=== PATIENT | female | born 1970 | race Caucasian/White ===

== ENCOUNTER 2019-05-06 16:36 | Inpatient (IN) ==
[2019-05-06] MEDS ORDERED: Ondansetron ODT 4 MG TAB.RAPDIS SL ONE (16:57)
[2019-05-06 18:30] LABS: White Blood Count 9.3 K/mcL (4.3-11.1)
[2019-05-06 18:31] LABS: Basophils % 0.4 %; Eosinophils % 0.1 %; Hematocrit 49.2 % (35.3-44.9); Hemoglobin 16.4 g/dL (11.5-15.4); Immature Granulocytes % 0.3 % (0-4); Lymphocytes # 1.3 K/mcL (0.6-4.6); Lymphocytes % 13.6 %; Mean Corpuscular HGB Conc 33.3 g/dL (31.6-35.5); Mean Corpuscular Hemoglobin 31.5 pg (28.0-33.3); Mean Corpuscular Volume 94.6 fL (83.0-100.0); Mean Platelet Volume 10.2 fL (9.4-12.4); Monocytes # 0.7 K/mcL (0.0-1.3); Neutrophils # 7.3 K/mcL (1.6-8.9); Platelet Count 253 K/mcL (140-400); Red Cell Distribution Width 11.9 % (11.5-14.5); Segmented Neutrophils % 78.6 %
[2019-05-06 18:38] LABS: Bilirubin,Urine Negative (Negative); Blood,Urine Negative (Negative); Clarity,Urine Clear (Clear); Color,Urine Yellow (Yellow); Glucose,Urine (UA) Normal (Normal); Ketones,Urine 40 mg/dL (Negative); Leukocyte Esterase,Urine Negative (Negative); Nitrite,Urine Negative (Negative); PH,Urine 5.5 pH Units (5.0-8.0); Protein,Urine Negative (Neg-Trace); Specific Gravity,Urine 1.022 (1.010-1.025); Urobilinogen,Urine Normal (Normal)
[2019-05-06 18:40] LABS: Acetaminophen < 10 mcg/mL (10-20); BUN/Creatinine Ratio 20 (6-26); Blood Urea Nitrogen 15 mg/dL (6-20); Calcium 9.8 mg/dL (8.6-10.3); Carbon Dioxide 22 mEq/L (23-29); Chloride 105 mEq/L (98-107); Ethanol < 10 mg/dL (Less than 10); Glucose 74 mg/dL (70-105); Osmolality,Calculated 285 (280-300); Salicylate < 2.5 mg/dL (15.0-30.0); Sodium 138 mEq/L (136-145); eGFR For African Americans > 60 (> 60); eGFR For Non-African Americans > 60 (> 60)
[2019-05-06 18:52] LABS: Amphetamine Screen,Urine Negative ng/mL (Cutoff=1000); Barbiturate Screen,Urine Negative ng/mL (Cutoff=200); Benzodiazepines Screen,Urine Negative ng/mL (Cutoff=200); Cannabinoid Screen,Urine Negative ng/mL (Cutoff = 50); Cocaine Screen,Urine Negative ng/mL (Cutoff= 300); Opiate Screen,Urine Negative ng/mL (Cutoff=300); Phencyclidine Screen,Urine Negative ng/mL (Cutoff=25)
[2019-05-06] MEDS ORDERED: Ibuprofen 600 MG TABLET PO ONE (19:32)
[2019-05-06] MEDS ORDERED: MOM Conc 10 ML UD.LIQ PO PRN (20:50)
[2019-05-06] MEDS ORDERED: Haloperidol Lactate 5 MG/ML VIAL IM PRN (20:50)
[2019-05-06] MEDS ORDERED: Mag Hydrox/Al Hydrox/Simeth 30 ML UDC PO PRN (20:50)
[2019-05-06] MEDS ORDERED: *HR* LORazepam 2 MG/ML VIAL IM PRN (20:50)
[2019-05-06] MEDS ORDERED: Acetaminophen 325 MG TABLET PO PRN (20:50)
[2019-05-06] MEDS ORDERED: *HR* LORazepam 1 MG TABLET PO PRN (20:50)
[2019-05-06] MEDS: traZODone 50 MG TABLET PO PRN (21:46)
[2019-05-06] MEDS: hydrOXYzine pamoate 25 MG CAPSULE PO PRN (21:46)
[2019-05-07] MEDS: BuPROPion XL (24 HR) 150 MG TABLET PO SCH (13:25)
[2019-05-07] MEDS: Gabapentin 400 MG CAPSULE PO SCH (20:53)
[2019-05-07] MEDS: traZODone 50 MG TABLET PO PRN (20:54)
[2019-05-07] MEDS: hydrOXYzine pamoate 25 MG CAPSULE PO PRN (20:54)
[2019-05-08] MEDS: Gabapentin 400 MG CAPSULE PO SCH (09:42)
[2019-05-08] MEDS: BuPROPion XL (24 HR) 150 MG TABLET PO SCH (09:42)
[2019-05-08 10:07] VITALS: BP 104/77
== END 2019-05-08 11:20 | disposition home or self-care (01) | DRG 885 ==
LOC: EMEROOARM 16:36 → 1ANU 20:31
PROVIDERS: ADMIT Psychiatry & Neurology Psychiatry; ATTEND Psychiatry & Neurology Psychiatry

== ENCOUNTER 2019-05-14 20:12 | Inpatient (IN) ==
[2019-05-14 21:34] LABS: Bilirubin,Urine Negative (Negative); Blood,Urine Negative (Negative); Clarity,Urine Clear (Clear); Color,Urine Yellow (Yellow); Glucose,Urine (UA) Normal (Normal); Ketones,Urine Negative (Negative); Leukocyte Esterase,Urine Negative (Negative); Nitrite,Urine Negative (Negative); PH,Urine 7.5 pH Units (5.0-8.0); Protein,Urine Negative (Neg-Trace); Specific Gravity,Urine 1.018 (1.010-1.025); Urobilinogen,Urine Normal (Normal)
[2019-05-14] MEDS ORDERED: Dexamethasone 4 MG/ML VIAL IVP ONE (22:19)
[2019-05-14] MEDS ORDERED: Ketorolac 15 MG/ML VIAL IM ONE (22:19)
[2019-05-14] MEDS ORDERED: *HR* FentaNYL (PF) 100 MCG/2 ML VIAL IVP ONE (22:19)
[2019-05-14] MEDS ORDERED: Ketorolac 15 MG/ML VIAL IVP ONE (22:30)
[2019-05-14 23:09] LABS: Basophils % 0.5 %; Eosinophils # 0.2 K/mcL (0.0-0.6); Hematocrit 38.6 % (35.3-44.9); Hemoglobin 12.7 g/dL (11.5-15.4); Immature Granulocytes % 0.3 % (0-4); Lymphocytes # 2.6 K/mcL (0.6-4.6); Mean Corpuscular HGB Conc 32.9 g/dL (31.6-35.5); Mean Corpuscular Hemoglobin 31.8 pg (28.0-33.3); Mean Corpuscular Volume 96.5 fL (83.0-100.0); Mean Platelet Volume 10.1 fL (9.4-12.4); Monocytes # 0.6 K/mcL (0.0-1.3); Monocytes % 8.1 %; Neutrophils # 4.2 K/mcL (1.6-8.9); Platelet Count 216 K/mcL (140-400); Red Cell Distribution Width 12.4 % (11.5-14.5); Segmented Neutrophils % 55.1 %; White Blood Count 7.7 K/mcL (4.3-11.1)
[2019-05-14 23:26] LABS: Alanine Aminotransferase 34 Units/L (7-52); Albumin/Globulin Ratio 1.4 (1.1-2.2); Alkaline Phosphatase 54 Units/L (34-104); Aspartate Amino Transferase 26 Units/L (13-39); BUN/Creatinine Ratio 16 (6-26); Bilirubin,Total 0.3 mg/dL (0.3-1.0); Blood Urea Nitrogen 13 mg/dL (6-20); Calcium 9.3 mg/dL (8.6-10.3); Carbon Dioxide 36 mEq/L (23-29); Chloride 104 mEq/L (98-107); Globulin 2.8 g/dL (2.4-3.5); Glucose 76 mg/dL (70-105); Osmolality,Calculated 291 (280-300); Potassium 3.5 mEq/L (3.5-5.1); Sodium 141 mEq/L (136-145); Total Protein 6.8 g/dL (6.4-8.9); eGFR For African Americans > 60 (> 60); eGFR For Non-African Americans > 60 (> 60)
[2019-05-15] MEDS ORDERED: *HR* HYDROmorphone (PF) 1 MG/ML SYRINGE IVP ONE (00:42)
[2019-05-15] MEDS ORDERED: Dexamethasone 10 MG/ML VIAL IVP ONE (01:49)
[2019-05-15] MEDS ORDERED: Naloxone 0.4 MG/ML INJ IVP PRN (03:44)
[2019-05-15] MEDS ORDERED: *HR* OxyCODONE/APAP 5/325 TABLET PO PRN (03:47)
[2019-05-15] MEDS ORDERED: hydrOXYzine pamoate 25 MG CAPSULE PO PRN (03:47)
[2019-05-15 08:12] LABS: BUN/Creatinine Ratio 16 (6-26); Blood Urea Nitrogen 11 mg/dL (6-20); Calcium 9.5 mg/dL (8.6-10.3); Carbon Dioxide 26 mEq/L (23-29); Chloride 102 mEq/L (98-107); Glucose 152 mg/dL (70-105); Osmolality,Calculated 290 (280-300); Potassium 3.9 mEq/L (3.5-5.1); Sodium 139 mEq/L (136-145); eGFR For African Americans > 60 (> 60); eGFR For Non-African Americans > 60 (> 60)
[2019-05-15] MEDS: BuPROPion XL (24 HR) 150 MG TABLET PO SCH (09:06)
[2019-05-15] MEDS: Gabapentin 400 MG CAPSULE PO SCH ×3 (09:06→22:19)
[2019-05-15] MEDS: *HR* OxyCODONE/APAP 5/325 TABLET PO PRN ×3 (10:23→22:19)
[2019-05-15] MEDS: 0.9 % Sodium Chloride 1,000 ML IVC SCH ×2 (10:23→22:24)
[2019-05-15] MEDS: traZODone 50 MG TABLET PO PRN (22:21)
[2019-05-16] MEDS: BuPROPion XL (24 HR) 150 MG TABLET PO SCH (09:02)
[2019-05-16] MEDS: *HR* OxyCODONE/APAP 5/325 TABLET PO PRN ×2 (09:02→20:11)
[2019-05-16] MEDS: Gabapentin 400 MG CAPSULE PO SCH ×3 (09:02→22:25)
[2019-05-16] MEDS: 0.9 % Sodium Chloride 1,000 ML IVC SCH (14:15)
[2019-05-16] MEDS: traZODone 50 MG TABLET PO PRN (22:29)
[2019-05-17] MEDS: 0.9 % Sodium Chloride 1,000 ML IVC SCH (03:25)
[2019-05-17 07:18] LABS: Basophils % 0.4 %; Eosinophils # 0.1 K/mcL (0.0-0.6); Eosinophils % 1.4 %; Hematocrit 36.7 % (35.3-44.9); Hemoglobin 12.4 g/dL (11.5-15.4); Immature Granulocytes % 0.3 % (0-4); Lymphocytes # 2.9 K/mcL (0.6-4.6); Lymphocytes % 41.8 %; Mean Corpuscular HGB Conc 33.8 g/dL (31.6-35.5); Mean Corpuscular Volume 94.6 fL (83.0-100.0); Mean Platelet Volume 9.9 fL (9.4-12.4); Monocytes # 0.6 K/mcL (0.0-1.3); Monocytes % 8.5 %; Neutrophils # 3.3 K/mcL (1.6-8.9); Platelet Count 188 K/mcL (140-400); Red Blood Count 3.88 M/mcL (3.82-4.97); Red Cell Distribution Width 12.8 % (11.5-14.5); Segmented Neutrophils % 47.6 %
[2019-05-17 07:39] LABS: BUN/Creatinine Ratio 21 (6-26); Blood Urea Nitrogen 18 mg/dL (6-20); Calcium 8.7 mg/dL (8.6-10.3); Carbon Dioxide 29 mEq/L (23-29); Chloride 105 mEq/L (98-107); Glucose 93 mg/dL (70-105); Osmolality,Calculated 302 (280-300); Potassium 4.3 mEq/L (3.5-5.1); Sodium 145 mEq/L (136-145); eGFR For African Americans > 60 (> 60); eGFR For Non-African Americans > 60 (> 60)
[2019-05-17] MEDS: BuPROPion XL (24 HR) 150 MG TABLET PO SCH (08:59)
[2019-05-17] MEDS: Gabapentin 400 MG CAPSULE PO SCH ×3 (08:59→20:08)
[2019-05-17] MEDS: *HR* OxyCODONE/APAP 5/325 TABLET PO PRN ×3 (09:00→20:11)
[2019-05-17] MEDS: traZODone 50 MG TABLET PO SCH (20:08)
[2019-05-18] MEDS: *HR* OxyCODONE/APAP 5/325 TABLET PO PRN ×4 (00:39→22:15)
[2019-05-18 02:58] LABS: INR 0.9; Prothrombin Time 10.2 Seconds (9.4-12.1)
[2019-05-18 03:06] LABS: White Blood Count 7.9 K/mcL (4.3-11.1)
[2019-05-18 03:07] LABS: Basophils # 0.1 K/mcL (0.0-0.2); Basophils % 0.6 %; Eosinophils # 0.2 K/mcL (0.0-0.6); Eosinophils % 1.9 %; Hematocrit 38.6 % (35.3-44.9); Hemoglobin 12.6 g/dL (11.5-15.4); Immature Granulocytes % 0.3 % (0-4); Lymphocytes % 37.4 %; Mean Corpuscular HGB Conc 32.6 g/dL (31.6-35.5); Mean Corpuscular Hemoglobin 31.6 pg (28.0-33.3); Mean Corpuscular Volume 96.7 fL (83.0-100.0); Monocytes # 0.9 K/mcL (0.0-1.3); Neutrophils # 3.8 K/mcL (1.6-8.9); Platelet Count 202 K/mcL (140-400); Red Blood Count 3.99 M/mcL (3.82-4.97); Red Cell Distribution Width 12.6 % (11.5-14.5); Segmented Neutrophils % 48.8 %
[2019-05-18 03:12] LABS: BUN/Creatinine Ratio 24 (6-26); Blood Urea Nitrogen 20 mg/dL (6-20); Calcium 9.1 mg/dL (8.6-10.3); Carbon Dioxide 29 mEq/L (23-29); Chloride 105 mEq/L (98-107); Glucose 97 mg/dL (70-105); Osmolality,Calculated 291 (280-300); Potassium 4.1 mEq/L (3.5-5.1); Sodium 139 mEq/L (136-145); eGFR For African Americans > 60 (> 60); eGFR For Non-African Americans > 60 (> 60)
[2019-05-18] MEDS: BuPROPion XL (24 HR) 150 MG TABLET PO SCH (10:57)
[2019-05-18] MEDS: Gabapentin 400 MG CAPSULE PO SCH ×3 (10:57→17:03)
[2019-05-18] MEDS: traZODone 50 MG TABLET PO SCH (19:23)
[2019-05-19 02:11] LABS: Basophils % 0.4 %; Eosinophils # 0.2 K/mcL (0.0-0.6); Eosinophils % 2.3 %; Hematocrit 38.8 % (35.3-44.9); Hemoglobin 12.8 g/dL (11.5-15.4); Immature Granulocytes % 0.4 % (0-4); Lymphocytes # 2.6 K/mcL (0.6-4.6); Mean Corpuscular Hemoglobin 31.9 pg (28.0-33.3); Mean Corpuscular Volume 96.8 fL (83.0-100.0); Mean Platelet Volume 9.8 fL (9.4-12.4); Monocytes # 0.9 K/mcL (0.0-1.3); Monocytes % 11.7 %; Platelet Count 204 K/mcL (140-400); Red Blood Count 4.01 M/mcL (3.82-4.97); Red Cell Distribution Width 12.3 % (11.5-14.5); Segmented Neutrophils % 51.2 %; White Blood Count 7.8 K/mcL (4.3-11.1)
[2019-05-19 02:32] LABS: BUN/Creatinine Ratio 26 (6-26); Blood Urea Nitrogen 23 mg/dL (6-20); Calcium 9.5 mg/dL (8.6-10.3); Carbon Dioxide 29 mEq/L (23-29); Chloride 101 mEq/L (98-107); Glucose 119 mg/dL (70-105); Osmolality,Calculated 295 (280-300); Potassium 4.1 mEq/L (3.5-5.1); Sodium 140 mEq/L (136-145); eGFR For African Americans > 60 (> 60); eGFR For Non-African Americans > 60 (> 60)
[2019-05-19] MEDS: *HR* OxyCODONE/APAP 5/325 TABLET PO PRN ×2 (04:56→09:10)
[2019-05-19] MEDS: Gabapentin 400 MG CAPSULE PO SCH ×2 (08:22→15:14)
[2019-05-19] MEDS: BuPROPion XL (24 HR) 150 MG TABLET PO SCH (08:22)
[2019-05-19] MEDS ORDERED: Acetaminophen IV 1,000 MG/100 ML INFUS..BTL IVPB ONE ×2 (13:42→14:45)
[2019-05-19] MEDS ORDERED: Famotidine 20 MG/2 ML VIAL IVP ONE ×2 (13:42→14:45)
[2019-05-19] MEDS ORDERED: Gabapentin 400 MG CAPSULE PO ONE (13:42)
[2019-05-19] MEDS ORDERED: *HR* Labetalol 20 MG/4 ML SYRINGE IVP PRN (13:43)
[2019-05-19] MEDS ORDERED: Ondansetron 4 MG/2 ML VIAL IVP ONE (13:43)
[2019-05-19] MEDS ORDERED: *HR* OxyCODONE Immed Rel 5 MG TABLET PO PRN (13:43)
[2019-05-19] MEDS ORDERED: *HR* Promethazine 25 MG/ML VIAL IVP PRN (13:43)
[2019-05-19] MEDS ORDERED: *HR* FentaNYL (PF) 100 MCG/2 ML VIAL ONE (14:41)
[2019-05-19] MEDS ORDERED: Acetaminophen IV 1,000 MG/100 ML INFUS..BTL ONE (14:41)
[2019-05-19] MEDS ORDERED: *HR* Propofol 200 MG/20 ML VIAL IVP ONE ×3 (14:41→17:05)
[2019-05-19] MEDS ORDERED: *HR* Midazolam HCl 2 MG/2 ML VIAL ONE ×2 (14:41→16:18)
[2019-05-19] MEDS ORDERED: Famotidine 20 MG/2 ML VIAL ONE (14:41)
[2019-05-19] MEDS ORDERED: Gabapentin 100 MG CAPSULE PO ONE (14:45)
[2019-05-19] MEDS ORDERED: Lidocaine HCL 4 ML Topical Solution (Laryng-O-Jet Kit Sterile Pak) TP ONE (15:12)
[2019-05-19] MEDS ORDERED: *HR* Remifentanil 1 MG VIAL IVP ONE ×4 (15:23→17:09)
[2019-05-19] MEDS ORDERED: Propofol 500 MG/50 ML INFUS..BTL ONE (16:07)
[2019-05-19] MEDS ORDERED: Esmolol 100 MG/10 ML VIAL IVP ONE (16:44)
[2019-05-19] MEDS ORDERED: Ondansetron 4 MG/2 ML VIAL ONE ×2 (17:46→17:51)
[2019-05-19] MEDS ORDERED: Dexamethasone 4 MG/ML VIAL ONE (17:51)
[2019-05-19] MEDS: *HR* HYDROmorphone (PF) 1 MG/ML SYRINGE IVP PRN ×4 (18:28→18:56)
[2019-05-19] MEDS ORDERED: Ringers Solution, Lactated 1,000 ML IVC SCH (19:13)
[2019-05-19] MEDS ORDERED: Acetaminophen 325 MG TABLET PO PRN (19:13)
[2019-05-19] MEDS ORDERED: Naloxone 0.4 MG/ML INJ IVP PRN (19:13)
[2019-05-19] MEDS: Ondansetron 4 MG/2 ML VIAL IVP PRN (22:26)
[2019-05-20] MEDS: *HR* OxyCODONE Immed Rel 5 MG TABLET PO PRN ×2 (01:11→15:18)
[2019-05-20] MEDS: *HR* Promethazine 25 MG/ML VIAL IVP PRN ×2 (01:41→08:27)
[2019-05-20] MEDS: Clindamycin 600 MG/50 ML 600 MG/50 ML IV.SOLN IVPB SCH ×2 (01:41→08:30)
[2019-05-20] MEDS: Ondansetron 4 MG/2 ML VIAL IVP PRN (05:30)
[2019-05-20] MEDS ORDERED: Bacitracin 50,000 UNIT, Polymyxin B Sulfate 500,000 UNIT, Sodium Chloride IRRigation 1,... IR ONE (06:00)
[2019-05-20 06:21] LABS: Hematocrit 35.5 % (35.3-44.9); Hemoglobin 12.3 g/dL (11.5-15.4); Mean Corpuscular HGB Conc 34.6 g/dL (31.6-35.5); Mean Corpuscular Hemoglobin 31.9 pg (28.0-33.3); Mean Corpuscular Volume 92.2 fL (83.0-100.0); Mean Platelet Volume 10.3 fL (9.4-12.4); Platelet Count 226 K/mcL (140-400); Red Blood Count 3.85 M/mcL (3.82-4.97); Red Cell Distribution Width 12.8 % (11.5-14.5)
[2019-05-20 06:22] LABS: White Blood Count 12.9 K/mcL (4.3-11.1)
[2019-05-20] MEDS ORDERED: *HR* Promethazine 25 MG/ML VIAL IVP ONE (06:38)
[2019-05-20 06:42] LABS: BUN/Creatinine Ratio 27 (6-26); Blood Urea Nitrogen 17 mg/dL (6-20); Calcium 8.7 mg/dL (8.6-10.3); Carbon Dioxide 27 mEq/L (23-29); Chloride 100 mEq/L (98-107); Glucose 137 mg/dL (70-105); Osmolality,Calculated 290 (280-300); Potassium 4.4 mEq/L (3.5-5.1); Sodium 138 mEq/L (136-145); eGFR For African Americans > 60 (> 60); eGFR For Non-African Americans > 60 (> 60)
[2019-05-20] MEDS ORDERED: Acetaminophen IV 1,000 MG/100 ML INFUS..BTL IVPB ONE (08:26)
[2019-05-20] MEDS: *HR* HYDROcodone/Acet 5/325 mg TABLET PO PRN ×2 (12:22→20:01)
[2019-05-20] MEDS ORDERED: hydrOXYzine pamoate 25 MG CAPSULE PO PRN (15:12)
[2019-05-20] MEDS: BuPROPion XL (24 HR) 150 MG TABLET PO SCH (15:25)
[2019-05-20] MEDS: Gabapentin 400 MG CAPSULE PO SCH ×2 (15:25→20:02)
[2019-05-20] MEDS ORDERED: tiZANidine 4 MG TABLET PO PRN (17:32)
[2019-05-20] MEDS: *HR* OxyCODONE Immed Rel 5 MG TABLET PO SCH ×2 (17:49→20:02)
[2019-05-20] MEDS ORDERED: Ondansetron ODT 4 MG TAB.RAPDIS SL ONE (19:59)
[2019-05-20] MEDS ORDERED: traZODone 50 MG TABLET PO SCH (21:00)
[2019-05-21] MEDS: *HR* OxyCODONE Immed Rel 5 MG TABLET PO SCH ×4 (00:25→12:04)
[2019-05-21 05:32] LABS: BUN/Creatinine Ratio 22 (6-26); Blood Urea Nitrogen 18 mg/dL (6-20); Calcium 8.8 mg/dL (8.6-10.3); Carbon Dioxide 31 mEq/L (23-29); Chloride 102 mEq/L (98-107); Glucose 107 mg/dL (70-105); Osmolality,Calculated 296 (280-300); Sodium 142 mEq/L (136-145); eGFR For African Americans > 60 (> 60); eGFR For Non-African Americans > 60 (> 60)
[2019-05-21 05:36] LABS: Hematocrit 34.7 % (35.3-44.9); Hemoglobin 11.5 g/dL (11.5-15.4); Immature Platelets 3.1 % (1.1-6.1); Mean Corpuscular HGB Conc 33.1 g/dL (31.6-35.5); Mean Corpuscular Hemoglobin 32.3 pg (28.0-33.3); Mean Corpuscular Volume 97.5 fL (83.0-100.0); Mean Platelet Volume 10.2 fL (9.4-12.4); Red Blood Count 3.56 M/mcL (3.82-4.97); Red Cell Distribution Width 13.3 % (11.5-14.5); White Blood Count 9.6 K/mcL (4.3-11.1)
[2019-05-21] MEDS: *HR* HYDROcodone/Acet 5/325 mg TABLET PO PRN (05:50)
[2019-05-21] MEDS: Gabapentin 400 MG CAPSULE PO SCH (08:48)
[2019-05-21] MEDS: BuPROPion XL (24 HR) 150 MG TABLET PO SCH (08:49)
[2019-05-21] MEDS ORDERED: tiZANidine 4 MG TABLET PO SCH (09:45)
[2019-05-21 11:07] VITALS: BP 111/75
== END 2019-05-21 13:45 | disposition home health service (06) | DRG 472 ==
LOC: EMEROOARM 20:12 → 3NENU 20:12 → SUATTDRO 05-15 01:30 → 3NENU 05-15 02:00 → SUATTDRO 05-19 15:15
PROVIDERS: ADMIT Internal Medicine; ATTEND Internal Medicine